=== PATIENT | male | born 1970 | race Caucasian/White ===

== ENCOUNTER 2017-01-18 19:22 | Observation (INO) | payer BC ==
--- NOTE | ~2017-01-18 | HP ---
History And Physical [place] [id number] [facility] [place]. [address] NAME: BRUNO HOOKS : 74 STATUS : DIS Caden PAT#: [id number] AGE: 46 ADM/REG DATE : 01/18/17 MR#: [id number] REPORT SERV DATE: 01/19/17 DICTATED BY: ISADORA JASSO DATE: 01/19/17 REPORT STATUS : Draft TRANSCRIBED BY: MODJennifer DATE: 01/19/17 DATE OF ADMISSION: 01/18/2017 CHIEF COMPLAINT: Lightheadedness/dizziness, sharp chest pain, headaches, fatigue. HISTORY OF PRESENT ILLNESS: This is a 46-year-old pleasant white male with a history of basilar migraines, vertigo, family history of premature coronary artery disease. 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 They did not note any abnormalities and felt that it was likely secondary to the basilar migraines. He reports for the past one month he has been having sharp/severe chest pain that lasts for hours. There was no exertional component. He reports he has near syncope and dizziness and can occur "at random." He reports he awakened night prior to admission with severe headache and also felt sharp chest pain, sweaty, and lightheaded. This was at 5:15 in the morning. He decided to go for his walk before work and he did not feel any better. He continues to feel lightheaded. At work, he still felt the similar symptoms and as they did not get better he went to the school nurse. He reports she checked the blood pressure, he does not remember the top number, but the bottom number a systolic blood pressure was in the 90s. She advised him to go to the emergency room for further evaluation. Currently, he is not having any symptoms at this time. PAST MEDICAL HISTORY: 1. Migraine headaches (basilar). 2. Vertigo x5 days approximately one month ago that has slowly been improving. This was status post an MRI of the brain and MRA of the brain and neck over at [facility] as an inpatient evaluation. 3. 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 Told that he did not need any further evaluation for that. 4. Seasonal allergies. SOCIAL HISTORY: . Works as a teacher. He denies any tobacco or alcohol usage. He normally walks without incident until recently becoming more fatigued and developing vertigo as previously mentioned for the past one month. FAMILY HISTORY: Mother with myocardial infarction in her early 50s with a stent; father with CAD with stent. ALLERGIES: NO KNOWN DRUG ALLERGIES. HOME MEDICATIONS: The patient denies any home medications. REVIEW OF SYSTEMS: The patient last underwent a cardiac evaluation in the [facility] and had a low risk nuclear stress test, 08/07/2011. He achieved José Luis stage 4 and had a left ventricular ejection fraction of greater than 60%. As above per HPI, all other systems reviewed and negative. History And Physical [address] [address] NAME: BRUNO HOOKS : 74 STATUS : DIS Caden PAT#: [id number] AGE: 46 ADM/REG DATE : 01/18/17 MR#: [id number] REPORT SERV DATE: 01/19/17 DICTATED BY: ISADORA JASSO DATE: 01/19/17 REPORT STATUS : Draft TRANSCRIBED BY: ENRIQUE DATE: 01/19/17 PHYSICAL EXAMINATION: VITAL SIGNS: Oxygen saturation 96% on room air, weight 107.27 kg, temperature 98, pulse 53, respiratory rate 18, blood pressure 129/69. GENERAL: Well developed, well nourished. In no apparent distress. HEENT: Head normocephalic. No xanthelasma. Sclera clear, anicteric. Moist mucous membranes without pallor. No lymphadenopathy. No deficits noted. NECK: Trachea midline. Supple. No thyromegaly, JVD, or bruits. RESPIRATORY: Unlabored respirations. Breath sounds clear bilaterally to posterior auscultation. No wheezes, rhonchi or crackles. CARDIOVASCULAR: Regular rate and rhythm. No murmur, rub, or gallop appreciated. No chest wall tenderness to palpation. ABDOMEN: Soft, nontender, and nondistended. Active bowel sounds auscultated x4 quadrants. No organomegaly and no masses. No aortic bruit. EXTREMITIES: DP/PT and radial pulses 2+ bilaterally. No clubbing, cyanosis, or edema. SKIN: Warm, dry, intact. No rash. Normal turgor. MUSCULOSKELETAL: Moves all extremities in bed without difficulty. NEURO/PSYCH: Alert and oriented x3 with no acute distress. Affect appropriate to current situation. LABORATORY DATA: BMP: Sodium 140, potassium 4.2, creatinine 0.93, glucose 100, calcium 8.5. Magnesium 2.4. CBC: White blood cell count 6.8, hemoglobin 15.7, hematocrit 44.2, platelets 243. Troponin less than 0.02 x3. STUDIES: Chest x-ray, negative two view chest x-ray. EKGs personally interpreted x3, sinus bradycardia with rates of 55, 55, and 56. No ischemia in all three EKGs. Nuclear stress test performed today, 01/19/2017. José Luis stage 4 achieved with good exercise tolerance. Imaging demonstrated no ischemia. Post exercise LVEF 54%. No EKG changes of ischemia. Overall low risk stress test. Chest pain of unclear etiology noted. Telemetry, sinus bradycardia 50s, no events. ASSESSMENT AND PLAN: 1. Precordial chest pain. Three negative troponins. EKG is benign. Cardiac risk factors include family history of premature coronary artery disease. I planned a nuclear stress test for further risk stratification of his symptoms. It was considered to be low risk with no ischemia with an ejection fraction of 54% and good exercise tolerance with José Luis stage 4 achieved. Therefore, the patient will be discharged to home with followup with the [facility] in two to three weeks at the [place] office per the patient request. 2. Near syncope. I will order a Holter monitor on discharge. Again, follow up with the [facility] in [place] in two to three weeks. 3. Sinus bradycardia. No events noted. The patient is not on any AV errol blocking agents. We will check Holter. 4. Family history of premature coronary artery disease noted. History And Physical [address] [address] NAME: BRUNO HOOKS : 74 STATUS : DIS Caden PAT#: [id number] AGE: 46 ADM/REG DATE : 01/18/17 MR#: [id number] REPORT SERV DATE: 01/19/17 DICTATED BY: ISADORA JASSO DATE: 01/19/17 REPORT STATUS : Draft TRANSCRIBED BY: MODJennifer DATE: 01/19/17 5. History of vertigo with a full evaluation as previously noted recently at [facility]. He is to follow up with his primary care provider. 6. History of basilar migraines. He did have a migraine that brought him in yesterday, but he is headache free at this time. Again, follow up with primary care provider. The patient was also seen down in the stress testing area by rounding liquid sugar fortifier for CPOU. HEATHER/ENRIQUE Isadroa Jasso NP / [id number] CC: Pema Mott, MSN, ADVERTISING SALES AGENT-BC Delta Poole M.D.
[2017-01-18 15:49] LABS: BASOPHILS 0.3 %; BASOPHILS ABSOLUTE 0.02 10/3/uL (0.0-0.16); EOSINOPHILS 3.7 %; EOSINOPHILS ABSOLUTE 0.25 10/3/uL (0.0-0.53); ER CBC TAT 0 Hrs 16 Mins; HEMATOCRIT 44.2 % (40.0-51.0); HEMOGLOBIN 15.7 g/dL (13.6-17.8); IMMATURE GRANULOCYTES 0.1 %; IMMATURE GRANULOCYTES ABSOLUTE 0.01 10/3/uL (0.0-0.11); LYMPHOCYTES 30.2 %; LYMPHOCYTES ABSOLUTE 2.04 10/3/uL (0.67-4.30); MEAN CORPUS HGB CONC 35.5 g/dL (32.0-36.0); MEAN CORPUSCULAR HEMOGLOB 31.3 pg (26.0-34.0); MEAN PLATELET VOLUME 8.5 fL (9.2-13.0); MONOCYTES 8.9 %; NEUTROPHILS 56.8 %; NEUTROPHILS ABSOLUTE 3.83 10/3/uL (2.02-8.40); PLATELET COUNT 243 10/3/uL (150-400); RBC DISTRIBUTION WIDTH 12.7 % (12.0-16.0); RED CELL COUNT 5.02 10/6/uL (4.7-6.1); WHITE BLOOD CELLS 6.8 10/3/uL (4.5-10.5)
[2017-01-18 15:52] LABS: MANUAL DIFF NO %
[2017-01-18 16:01] LABS: BUN (BLOOD UREA NITROGEN) 14 MG/DL (6-23); CALCIUM, SERUM 8.5 MG/DL (8.5-10.4); CHEST PAIN PROFILE TAT 0 Hrs 28 Mins; CHLORIDE, SERUM 105 MMOL/L (96-112); CO2 (CARBON DIOXIDE) 27 MMOL/L (24-34); CREATININE 0.93 MG/DL (0.70-1.30); GFR AFRICAN AMERICAN 115 ML/MIN (>=60); GFR NON AFRICAN AMERICAN 99 ML/MIN (>=60); GLUCOSE, SERUM 100 MG/DL (60-99); POTASSIUM, SERUM 4.2 MMOL/L (3.5-5.3); SODIUM, SERUM 140 MMOL/L (135-148); TROPONIN I <0.02 NG/ML (<0.05)
[2017-01-18 16:05] LABS: INTERNATIONAL NORMAL RATI 1.1 UNITS (-); PARTIAL THROMBO TIME 27.9 SEC (22.5-37.2); PROTIME (NOT ORD) 13.8 SEC (12.0-14.5)
[~2017-01-18 19:22] MED LIST: PT DENIES HOME MEDS
== END 2017-01-19 13:50 | disposition home or self-care (01) ==
LOC: ER 19:22 → CDU1 20:13 → CDU2 20:52
PROVIDERS: Emergency Medicine
DX: R07.2 Precordial pain (principal); R42 Dizziness and giddiness; R55 Syncope and collapse; R00.1 Bradycardia, unspecified; G43.109 Migraine with aura, not intractable, without status migrainosus; J30.2 Other seasonal allergic rhinitis; Z82.49 Family history of ischemic heart disease and other diseases of the circulatory system
CPT/HCPCS: 71020; 78452; 80048; 83735; 84484; 85025; 85610; 85730; 93005; 93017; 93225; 93226; 99285; A9270-GY; A9502; G0378